=== PATIENT | male | born 1995 | race Asian ===

== ENCOUNTER 2017-06-21 02:10 | Emergency (ER) | payer OTHER ==
[~2017-06-21] VITALS: Ht 170.2 cm; Wt 59.0 kg
[2017-06-21] MEDS ORDERED: IBUPROFEN600 MG ORAL (02:16)
[2017-06-21] MEDS ORDERED: AMOXIL250 MG ORAL (02:16)
--- NOTE | 2017-06-21 02:48 | Emergency Room Report ---
History of Present Illness General Chief Complaint: Nosebleed Source: Patient Present Illness HPI Is a 22-year-old male who has a history of severe DD septum. He has nasal septoplasty done [address] Langley at [facility]. He was doing wanted tonight when he felt something went back of his throat. He spit it out there was large amount of blood. He was about a 2 mL. He brought her here to be seen. Bleeding slowed down but he still having small amount of blood that his throat. Denies any trauma. Denies any fever or chills. No other complication until now. Allergies: Coded Allergies: No Known Allergies (Unverified , 06/21/17) Patient History Past Medical History: see triage record, old chart reviewed Past Surgical History: other Pertinent Family History: none Social History: Denies: smoking Immunizations: other Reviewed Nursing Documentation: PMH: Agreed, PSxH: Agreed Nursing Documentation-PM Past Medical History: No Stated History Review of Systems Eye: Denies: eye pain, blurred vision ENT: Denies: ear pain, nose congestion, throat swelling Respiratory: Denies: cough, shortness of breath Cardiovascular: Denies: chest pain, palpitations Gastrointestinal: Denies: abdominal pain, diarrhea, nausea, vomiting Musculoskeletal: Denies: back pain, joint pain Skin: Denies: rash Neurological: Denies: headache, numbness Endocrine: Denies: increased thirst, increased urine Hematologic/Lymphatic: Denies: easy bruising All Other Systems: negative except mentioned in HPI Physical Exam Vital Signs Date Time Temp Pulse Resp B/P (MAP) Pulse Ox O2 Delivery O2 Flow Rate FiO2 06/21/17 02:13 75 14 131/91 100 Room Air vitals normal Sp02 EP Interpretation: reviewed, normal General Appearance: well appearing, no apparent distress, alert Head: normocephalic, atraumatic Eyes: bilateral eye PERRL, bilateral eye EOMI ENT: hearing grossly normal, normal pharynx, other - Nasal packing in place. Oropharynx showed no active bleeding. Neck: full range of motion, supple, no meningismus Respiratory: chest non-tender, lungs clear, normal breath sounds Cardiovascular #1: regular rate, rhythm, no murmur Gastrointestinal: normal bowel sounds, non tender, no mass, no organomegaly, no bruit, non-distended Musculoskeletal: back normal, gait/station normal, normal range of motion Psychiatric: mood/affect normal Skin: warm/dry Medical Decision Making Diagnostic Impression: Primary Impression: Post-op bleeding ER Course Patient presents with postoperative bleeding. Now it is losing. CBC unremarkable. I discussed the case with Dr. Langley at [phone]. He recommended that we do not touch the packing. He said patient has a very severe deviated septum and redundant tissue. Any packing changed need to be done in the OR. The bleeding slowed down, he will see the patient later on today. I discussed this with the patient and he is agreeable to the plan. Last Vital Signs Date Time Temp Pulse Resp B/P (MAP) Pulse Ox O2 Delivery O2 Flow Rate FiO2 06/21/17 02:13 75 14 131/91 100 Room Air Status: improved Disposition: HOME, SELF-CARE Condition: Stable Additional Instructions: Sit up tonight. Call the office first thing in the morning. Your Dr. we'll see you in the office. Return if symptom worsen. ANGELA GALEAS M.D. Jun 21, 2017 02:48
[2017-06-21 03:03] LABS: BASOPHILS % (AUTO) 1.2 % (0.0-2.0); LYMPHOCYTES % (AUTO) 38.6 % (20.0-45.0); MEAN CORPUSCULAR HEMOGLOBIN 30.3 PG (27.0-31.0); MEAN CORPUSCULAR HGB CONC 33.5 G/DL (32.0-36.0); MEAN CORPUSCULAR VOLUME 90 FL (80-99); MEAN PLATELET VOLUME 6.9 FL (6.5-10.1); MONOCYTES % (AUTO) 9.6 % (1.0-10.0); NEUTROPHILS % (AUTO) 46.5 % (45.0-75.0); PLATELET COUNT 353 K/UL (150-450); RED BLOOD COUNT 5.45 M/UL (4.70-6.10); RED CELL DISTRIBUTION WIDTH 10.6 % (11.6-14.8); WHITE BLOOD COUNT 8.3 K/UL (4.8-10.8)
[2017-06-21 03:20] VITALS: BP 131/91
== END 2017-06-21 05:15 | disposition home or self-care (01) ==
LOC: EMR 02:25
DX: M96.831 Postprocedural hemorrhage of a musculoskeletal structure following other procedure (principal)
CPT/HCPCS: 36415; 85025; 99282